=== PATIENT | female | born 1940 ===

== ENCOUNTER 2020-10-20 14:04 | Inpatient (IN) ==
[2020-10-20] MEDS ORDERED: Piperacillin/Tazobac ADVAN 3.375 GM in NS 0.9% 100 ml BAG 100 ML IV ONE (14:26)
[2020-10-20] MEDS ORDERED: NS 0.9% 1000 ml BAG 1,000 ML IV ONE ×2 (14:26→17:25)
[2020-10-20 15:07] LABS: ABS Lymphocytes 0.7 10^3/ul (1.0-4.8); ABS Monocytes 0.6 10^3/ul (0-0.8); Hematocrit 35 % (35-47); Hemoglobin 11.9 g/dL (12.0-16.0); Lymphocyte % 6.2 %; Mean Corpuscular HGB Conc 34 g/dL (31-36); Mean Corpuscular Hemoglobin 32 pg (27-31); Mean Corpuscular Volume 94 fL (80-97); Mean Platelet Volume 7.9 fL (7.4-10.4); Platelet Count 233 10^3/uL (150-450); Red Blood Count 3.77 10^6 /uL (3.70-4.87); Red Cell Distribution Width 14 % (10-15); White Blood Count 11.4 10^3/uL (3.5-10.8)
[2020-10-20 15:26] LABS: Activated Partial Thrombo Time 27.4 seconds (26.0-38.0); INR 1.23 (0.86-1.15)
[2020-10-20 15:41] LABS: ALT 28 U/L (7-52); AST 38 U/L (13-39); Albumin 4.1 g/dL (3.2-5.2); Albumin/Globulin Ratio 1.3 (1-3); Alkaline Phosphatase 60 U/L (35-149); Anion Gap 8 mmol/L (2-11); Blood Urea Nitrogen 28 mg/dL (6-24); C Reactive Protein 126.78 mg/L (<8.01); CO2 Carbon Dioxide 30 mmol/L (22-32); Calcium 9.4 mg/dL (8.6-10.3); Chloride 98 mmol/L (101-111); EGFR African American 29.1 (>60); EGFR Non-African American 24.1 (>60); Globulin 3.2 g/dL (2-4); Glucose 147 mg/dL (70-100); Lipase 43 U/L (11.0-82.0); Potassium 3.1 mmol/L (3.5-5.0); Sodium 136 mmol/L (135-145); Total Protein 7.3 g/dL (6.4-8.9)
[2020-10-20 15:47] LABS: Urine Appearance Turbid; Urine Bilirubin Negative (Negative); Urine Blood 3+ (Negative); Urine Color Amber; Urine Glucose Negative (Negative); Urine Ketones Negative (Negative); Urine Nitrite Positive (Negative); Urine Protein 3+(>=500 mg/dL) (Negative); Urine Specific Gravity 1.013 (1.002-1.030); Urine Urobilinogen Negative (Negative)
[2020-10-20 16:17] LABS: Urine Bacteria 1+ (Absent); Urine Red Blood Cell 3+(>10/hpf) (Absent); Urine White Blood Cell 3+(>20/hpf) (Absent)
[2020-10-20] MEDS ORDERED: NS 0.9% 1000 ml BAG 1,000 ML IV SCH (17:45)
[2020-10-20 17:47] LABS: Troponin I 0.04 ng/mL (<0.03)
[2020-10-20] MEDS ORDERED: cefTRIAXone 1 GM/50 ML PREMIX.BAG IV ONE (18:00)
[2020-10-20 22:50] LABS: Troponin I 0.04 ng/mL (<0.03)
[2020-10-21] MEDS: Heparin 5000 UNITS/ML 1 mL VIAL SUBCUT SCH ×2 (05:17→10:28)
[2020-10-21] MEDS: Potassium Chlor 20 meq TAB.ER PO SCH ×4 (05:48→13:04)
[2020-10-21 09:44] LABS: Hematocrit 30 % (35-47); Hemoglobin 10.2 g/dL (12.0-16.0); Mean Corpuscular HGB Conc 34 g/dL (31-36); Mean Corpuscular Hemoglobin 32 pg (27-31); Mean Corpuscular Volume 93 fL (80-97); Platelet Count 155 10^3/uL (150-450); Red Cell Distribution Width 14 % (10-15); White Blood Count 17.6 10^3/uL (3.5-10.8)
[2020-10-21 10:00] LABS: Calcium 7.9 mg/dL (8.6-10.3); EGFR African American 23.4 (>60); EGFR Non-African American 19.4 (>60); Magnesium 1.3 mg/dL (1.9-2.7); Potassium 3.2 mmol/L (3.5-5.0)
[2020-10-21] MEDS: Cholecalciferol (VIT D3) 1,000 unit TAB PO SCH (10:28)
[2020-10-21] MEDS: Aspirin EC 81 mg TAB.EC (enteric coated) PO SCH (10:28)
[2020-10-21 10:50] LABS: ABS Lymphocytes 0.7 10^3/ul (1.0-4.8); ABS Monocytes 1.1 10^3/ul (0-0.8); ABS Neutrophils 15.7 10^3/ul (1.5-7.7); Lymphocyte % 4.3 %
[2020-10-21] MEDS ORDERED: Magnesium Sulf 4 GM/100 ML IV 4,000 MG/100 ML BAG IVPB ONE (12:27)
[2020-10-21] MEDS ORDERED: NS 0.9% 1000 ml BAG 1,000 ML IV SCH (12:30)
[2020-10-21] MEDS: KCL 20 MEQ/100 ML IVPREMIX 20 MEQ/100 ML BAG IV SCH ×3 (13:02→17:59)
[2020-10-21] MEDS ORDERED: Albuterol/Ipratropium NEB.SOL (2.5/0.5 MG) 3 ML NEB.SOLN INH PRN (13:16)
[2020-10-21] MEDS: cefTRIAXone 1 gm/50 mL NS BAG 1 GM/50 ML BAG IVPB SCH (17:59)
[2020-10-21 21:29] LABS: Urine Creatinine Concentration 79.47 mg/dL
[2020-10-22] MEDS: Heparin 5000 UNITS/ML 1 mL VIAL SUBCUT SCH ×3 (00:54→20:37)
[2020-10-22] MEDS ORDERED: Ondansetron ODT 4 mg TAB 4 MG TAB SL PRN (06:20)
[2020-10-22] MEDS ORDERED: Al Hydrox/Mg Hydrox/Simet LIQ 30 ML UDC PO PRN (06:20)
[2020-10-22 06:31] LABS: Albumin 3.2 g/dL (3.2-5.2); Albumin/Globulin Ratio 1.2 (1-3); C Reactive Protein 197.86 mg/L (<8.01); Calcium 7.8 mg/dL (8.6-10.3); EGFR African American 20.8 (>60); EGFR Non-African American 17.2 (>60); Globulin 2.6 g/dL (2-4); Potassium 3.2 mmol/L (3.5-5.0); Total Bilirubin 1.2 mg/dL (0.2-1.0); Total Protein 5.8 g/dL (6.4-8.9)
[2020-10-22 06:50] LABS: ABS Lymphocytes 0.2 10^3/ul (1.0-4.8); ABS Neutrophils 0.7 10^3/ul (1.5-7.7); Eosinophil % 1.6 %; Hematocrit 31 % (35-47); Hemoglobin 10.5 g/dL (12.0-16.0); Mean Corpuscular HGB Conc 34 g/dL (31-36); Mean Corpuscular Hemoglobin 32 pg (27-31); Mean Corpuscular Volume 94 fL (80-97); Mean Platelet Volume 8.4 fL (7.4-10.4); Nucleated Red Blood Cells % 0.3; Platelet Count 107 10^3/uL (150-450); Red Blood Count 3.33 10^6 /uL (3.70-4.87); Red Cell Distribution Width 14 % (10-15)
[2020-10-22] MEDS ORDERED: Furosemide 40 mg/4 ml IV VIAL IV ONE (08:14)
[2020-10-22 08:36] LABS: Magnesium 2.5 mg/dL (1.9-2.7)
[2020-10-22] MEDS: Aspirin EC 81 mg TAB.EC (enteric coated) PO SCH (09:00)
[2020-10-22] MEDS: Cholecalciferol (VIT D3) 1,000 unit TAB PO SCH (09:01)
[2020-10-22] MEDS: KCL 20 MEQ/100 ML IVPREMIX 20 MEQ/100 ML BAG IV SCH ×3 (09:01→13:51)
[2020-10-22 11:31] LABS: Albumin 3.1 g/dL (3.2-5.2); Albumin/Globulin Ratio 1.2 (1-3); Calcium 7.9 mg/dL (8.6-10.3); EGFR African American 17.3 (>60); EGFR Non-African American 14.3 (>60); Globulin 2.5 g/dL (2-4); Potassium 3.5 mmol/L (3.5-5.0); Total Protein 5.6 g/dL (6.4-8.9)
[2020-10-22 11:43] LABS: ABS Lymphocytes 0.3 10^3/ul (1.0-4.8); ABS Monocytes 0.3 10^3/ul (0-0.8); ABS Neutrophils 13.7 10^3/ul (1.5-7.7); Hematocrit 29 % (35-47); Hemoglobin 10.2 g/dL (12.0-16.0); Lymphocyte % 2.2 %; Mean Corpuscular HGB Conc 35 g/dL (31-36); Mean Corpuscular Hemoglobin 32 pg (27-31); Mean Corpuscular Volume 92 fL (80-97); Mean Platelet Volume 9.4 fL (7.4-10.4); Platelet Count 116 10^3/uL (150-450); Red Blood Count 3.21 10^6 /uL (3.70-4.87); Red Cell Distribution Width 14 % (10-15); White Blood Count 14.3 10^3/uL (3.5-10.8)
[2020-10-22 12:11] LABS: RBC Parasite Smear No Parasites Seen (No Parasite)
[2020-10-22] MEDS: Azithromycin 500 mg/250 ml NS 500 MG/250 ML BAG IVPB SCH (13:51)
[2020-10-22] MEDS: cefTRIAXone 1 gm/50 mL NS BAG 1 GM/50 ML BAG IVPB SCH (18:30)
[2020-10-23 06:41] LABS: ABS Eosinophils 0.1 10^3/ul (0-0.6); ABS Lymphocytes 1.1 10^3/ul (1.0-4.8); ABS Monocytes 0.5 10^3/ul (0-0.8); ABS Neutrophils 13.9 10^3/ul (1.5-7.7); Eosinophil % 0.9 %; Hematocrit 27 % (35-47); Hemoglobin 9.3 g/dL (12.0-16.0); Lymphocyte % 6.8 %; Mean Corpuscular HGB Conc 34 g/dL (31-36); Mean Corpuscular Hemoglobin 32 pg (27-31); Mean Corpuscular Volume 94 fL (80-97); Mean Platelet Volume 9.4 fL (7.4-10.4); Platelet Count 95 10^3/uL (150-450); Red Cell Distribution Width 14 % (10-15); White Blood Count 15.7 10^3/uL (3.5-10.8)
[2020-10-23 06:56] LABS: Albumin/Globulin Ratio 1.2 (1-3); C Reactive Protein 205.23 mg/L (<8.01); Calcium 7.6 mg/dL (8.6-10.3); EGFR African American 12.5 (>60); EGFR Non-African American 10.3 (>60); Globulin 2.5 g/dL (2-4); Total Bilirubin 0.8 mg/dL (0.2-1.0); Total Protein 5.5 g/dL (6.4-8.9)
[2020-10-23] MEDS ORDERED: Zosyn per Pharmacy NOTE FOLLOW UP SCH (07:00)
[2020-10-23] MEDS: Cholecalciferol (VIT D3) 1,000 unit TAB PO SCH (07:13)
[2020-10-23] MEDS: Aspirin EC 81 mg TAB.EC (enteric coated) PO SCH (07:13)
[2020-10-23] MEDS: Heparin 5000 UNITS/ML 1 mL VIAL SUBCUT SCH (07:13)
[2020-10-23] MEDS ORDERED: Piperacillin/Tazobac ADVAN 3.375 GM in NS 0.9% 100 ml BAG 100 ML IV ONE (07:30)
[2020-10-23] MEDS ORDERED: NORMOSOL-R pH 7.4 1000 mL BAG 1,000 ML IV SCH (10:00)
[2020-10-23] MEDS ORDERED: NS 0.9% 1000 ml BAG 1,000 ML IV SCH ×2 (10:15→10:30)
[2020-10-23] MEDS ORDERED: Furosemide 100 mg/10 ml IV VIAL IV ONE (10:27)
[2020-10-23] MEDS: Azithromycin 500 mg/250 ml NS 500 MG/250 ML BAG IVPB SCH (12:03)
[2020-10-23 12:13] LABS: Calcium 7.9 mg/dL (8.6-10.3); EGFR African American 11.5 (>60); EGFR Non-African American 9.5 (>60); Potassium 3.8 mmol/L (3.5-5.0)
[2020-10-23] MEDS ORDERED: ZOSYN 3.375 GM Q12H per EXTENDED INFUSION IV SCH (12:30)
[2020-10-23 12:34] LABS: Urine Appearance Turbid; Urine Bilirubin Negative (Negative); Urine Blood 3+ (Negative); Urine Color Amber; Urine Glucose Negative (Negative); Urine Ketones Negative (Negative); Urine Nitrite Negative (Negative); Urine Protein 2+(100 mg/dL) (Negative); Urine Specific Gravity 1.011 (1.002-1.030); Urine Urobilinogen Negative (Negative)
[2020-10-23 12:39] LABS: Urine Amorphous Crystals Present (Absent); Urine Bacteria 1+ (Absent); Urine Red Blood Cell 3+(>10/hpf) (Absent); Urine White Blood Cell Trace(0-5/hpf) (Absent)
[2020-10-23 12:50] LABS: Urine Creatinine 97.96 mg/dL; Urine Creatinine Concentration 97.96 mg/dL
[2020-10-23 13:12] LABS: Hepatitis B Surface Antigen Nonreactive (Nonreactive)
[2020-10-23 13:23] LABS: UR Microalbumin (mg/L) 631.6 mg/L; Urine Microalbumin/Creatinine 644.7 (<31)
[2020-10-23 13:29] LABS: Hepatitis B Surface Ab Immune (Immune); Hepatitis C Antibody Negative (Negative)
[2020-10-23] MEDS: cefTRIAXone 2 GM ADDV.VIAL 2 GM in NS 0.9% 100 ml BAG 100 ML IV SCH (18:29)
[2020-10-24 06:05] LABS: Albumin 2.7 g/dL (3.2-5.2); Albumin/Globulin Ratio 1.2 (1-3); C Reactive Protein 146.19 mg/L (<8.01); Calcium 7.6 mg/dL (8.6-10.3); EGFR African American 9.3 (>60); EGFR Non-African American 7.7 (>60); Globulin 2.3 g/dL (2-4); Potassium 4.2 mmol/L (3.5-5.0); Total Bilirubin 0.6 mg/dL (0.2-1.0)
[2020-10-24 06:07] LABS: ABS Basophils 0.1 10^3/ul (0-0.2); ABS Eosinophils 0.2 10^3/ul (0-0.6); ABS Lymphocytes 1.5 10^3/ul (1.0-4.8); ABS Monocytes 0.9 10^3/ul (0-0.8); Eosinophil % 1.4 %; Hematocrit 29 % (35-47); Hemoglobin 9.7 g/dL (12.0-16.0); Lymphocyte % 9.7 %; Mean Corpuscular HGB Conc 34 g/dL (31-36); Mean Corpuscular Hemoglobin 31 pg (27-31); Mean Corpuscular Volume 93 fL (80-97); Mean Platelet Volume 9.9 fL (7.4-10.4); Platelet Count 111 10^3/uL (150-450); Red Blood Count 3.09 10^6 /uL (3.70-4.87); Red Cell Distribution Width 14 % (10-15); White Blood Count 15.6 10^3/uL (3.5-10.8)
[2020-10-24] MEDS ORDERED: fentaNYL 100 mcg/2 ml 50 MCG/ML VIAL ONE ×2 (07:58→11:12)
[2020-10-24 08:05] LABS: Magnesium 2.5 mg/dL (1.9-2.7); Phosphorus 2.2 mg/dL (2.5-5.0)
[2020-10-24] MEDS: Cholecalciferol (VIT D3) 1,000 unit TAB PO SCH (10:21)
[2020-10-24] MEDS: Azithromycin 500 mg/250 ml NS 500 MG/250 ML BAG IVPB SCH (10:22)
[2020-10-24] MEDS ORDERED: Clindamycin 600 MG/D5W BAG 600 MG/50 ML BAG IV ONE (10:45)
[2020-10-24 10:46] LABS: Anion Gap 10 mmol/L (2-11); Blood Urea Nitrogen 72 mg/dL (6-24); CO2 Carbon Dioxide 21 mmol/L (22-32); Calcium 8.1 mg/dL (8.6-10.3); Chloride 104 mmol/L (101-111); EGFR African American 9.1 (>60); EGFR Non-African American 7.5 (>60); Glucose 93 mg/dL (70-100); Potassium 4.2 mmol/L (3.5-5.0); Sodium 135 mmol/L (135-145)
[2020-10-24] MEDS ORDERED: Heparin 5000 UNITS/ML 1 mL VIAL ONE (11:10)
[2020-10-24] MEDS ORDERED: Midazolam 5 mg/5 ml VIAL 1 mg/ml 5 ml VIAL (5 mg) ONE (11:12)
[2020-10-24] MEDS ORDERED: Lidocaine 1% VIAL 10 MG/ML VIAL ONE (11:15)
[2020-10-24] MEDS ORDERED: Heparin 2 UNITS/ML IVPREMIX 1,000 UNIT/500 ML BAG IV ONE (11:15)
[2020-10-24] MEDS ORDERED: Heparin 1,000 UNIT/ML 10 ml (10,000 UNITS) CATHLAB/DIALYSIS DIALYSIS ONE (12:00)
[2020-10-24 16:29] LABS: Complement C3 96 mg/dL (75 - 175)
[2020-10-24 16:47] LABS: Kappa Free Light Chain 5.36 mg/dL; Lambda Free Light Chain, S 4.84 mg/dL
[2020-10-24] MEDS: cefTRIAXone 2 GM ADDV.VIAL 2 GM in NS 0.9% 100 ml BAG 100 ML IV SCH (18:00)
[2020-10-24 18:16] LABS: Procalcitonin, S 254 ng/mL (<=0.15)
[2020-10-25 06:25] LABS: Hematocrit 26 % (35-47); Hemoglobin 8.5 g/dL (12.0-16.0); Mean Corpuscular HGB Conc 33 g/dL (31-36); Mean Corpuscular Hemoglobin 31 pg (27-31); Mean Corpuscular Volume 93 fL (80-97); Mean Platelet Volume 9.6 fL (7.4-10.4); Platelet Count 146 10^3/uL (150-450); Red Blood Count 2.77 10^6 /uL (3.70-4.87); Red Cell Distribution Width 14 % (10-15); White Blood Count 13.3 10^3/uL (3.5-10.8)
[2020-10-25 06:43] LABS: Albumin 2.9 g/dL (3.2-5.2); Albumin/Globulin Ratio 1.1 (1-3); C Reactive Protein 102.45 mg/L (<8.01); Calcium 7.9 mg/dL (8.6-10.3); EGFR African American 10.9 (>60); Globulin 2.7 g/dL (2-4); Magnesium 2.1 mg/dL (1.9-2.7); Phosphorus 2.7 mg/dL (2.5-5.0); Potassium 3.8 mmol/L (3.5-5.0); Total Bilirubin 0.5 mg/dL (0.2-1.0); Total Protein 5.6 g/dL (6.4-8.9)
[2020-10-25 07:44] LABS: Anaplasma phagocytophilum Negative (Negative); B. miyamotoi PCR, B Negative (Negative); Babesia divergens/MO-1 Negative (Negative); Babesia ducani Negative (Negative); Ehrlichia chaffeensis Negative (Negative); Ehrlichia ewingii/canis Negative (Negative); Ehrlichia muris eauclairensis Negative (Negative)
[2020-10-25 07:52] LABS: ABS Basophils 0.1 10^3/ul (0-0.2); ABS Eosinophils 0.3 10^3/ul (0-0.6); ABS Lymphocytes 1.1 10^3/ul (1.0-4.8); ABS Monocytes 0.9 10^3/ul (0-0.8); ABS Neutrophils 10.9 10^3/ul (1.5-7.7); Lymphocyte % 8.6 %
[2020-10-25 10:33] LABS: Myeloperoxidase Antibody <0.2 U
[2020-10-25] MEDS: Cholecalciferol (VIT D3) 1,000 unit TAB PO SCH (11:42)
[2020-10-25] MEDS: cefTRIAXone 2 GM ADDV.VIAL 2 GM in NS 0.9% 100 ml BAG 100 ML IV SCH (15:56)
[2020-10-25 17:59] LABS: Phospholipase A2 Receptor IFA Negative (Negative); Phospholipase A2 ReceptorELISA <2 RU/mL
[2020-10-25 20:59] LABS: Albumin 2.3 g/dL (3.4-4.7); Albumin/Globulin Ratio 0.86; Gamma Globulin 0.8 g/dL (0.6-1.6)
[2020-10-26 05:50] LABS: Hematocrit 26 % (35-47); Hemoglobin 8.6 g/dL (12.0-16.0); Mean Corpuscular HGB Conc 34 g/dL (31-36); Mean Corpuscular Hemoglobin 31 pg (27-31); Mean Corpuscular Volume 93 fL (80-97); Mean Platelet Volume 8.8 fL (7.4-10.4); Platelet Count 194 10^3/uL (150-450); Red Blood Count 2.76 10^6 /uL (3.70-4.87); Red Cell Distribution Width 14 % (10-15); White Blood Count 12.4 10^3/uL (3.5-10.8)
[2020-10-26 05:57] LABS: INR 1.09 (0.86-1.15)
[2020-10-26 06:16] LABS: Albumin/Globulin Ratio 1.1 (1-3); C Reactive Protein 86.09 mg/L (<8.01); Calcium 7.9 mg/dL (8.6-10.3); Direct Bilirubin 0.2 mg/dL (0.03-0.18); EGFR African American 12.2 (>60); EGFR Non-African American 10.1 (>60); Globulin 2.8 g/dL (2-4); Indirect Bilirubin 0.2 mg/dL (0.3-1.0); Potassium 3.7 mmol/L (3.5-5.0); Total Bilirubin 0.4 mg/dL (0.2-1.0); Total Protein 5.8 g/dL (6.4-8.9)
[2020-10-26 06:57] LABS: HIV 4th Generation Nonreactive (Nonreactive)
[2020-10-26 07:01] LABS: ABS Basophils 0.1 10^3/ul (0-0.2); ABS Eosinophils 0.4 10^3/ul (0-0.6); ABS Lymphocytes 1.2 10^3/ul (1.0-4.8); ABS Monocytes 0.9 10^3/ul (0-0.8); ABS Neutrophils 9.9 10^3/ul (1.5-7.7); Eosinophil % 2.8 %; Lymphocyte % 9.4 %
[2020-10-26] MEDS: Cholecalciferol (VIT D3) 1,000 unit TAB PO SCH (10:03)
[2020-10-26 12:22] LABS: C-ANCA Negative (Negative); P-ANCA Negative (Negative)
[2020-10-26] MEDS: cefTRIAXone 2 GM ADDV.VIAL 2 GM in NS 0.9% 100 ml BAG 100 ML IV SCH (16:26)
[2020-10-27 06:37] LABS: Hematocrit 26 % (35-47); Hemoglobin 8.6 g/dL (12.0-16.0); Mean Corpuscular HGB Conc 33 g/dL (31-36); Mean Corpuscular Hemoglobin 31 pg (27-31); Mean Corpuscular Volume 93 fL (80-97); Mean Platelet Volume 8.1 fL (7.4-10.4); Platelet Count 279 10^3/uL (150-450); Red Cell Distribution Width 14 % (10-15); White Blood Count 14.3 10^3/uL (3.5-10.8)
[2020-10-27 06:58] LABS: C Reactive Protein 66.08 mg/L (<8.01); Calcium 7.9 mg/dL (8.6-10.3); EGFR African American 8.5 (>60); Phosphorus 4.4 mg/dL (2.5-5.0); Potassium 3.9 mmol/L (3.5-5.0); Total Bilirubin 0.4 mg/dL (0.2-1.0)
[2020-10-27] MEDS ORDERED: Heparin 1,000 UNIT/ML 10 ml (10,000 UNITS) CATHLAB/DIALYSIS DIALYSIS SCH (08:00)
[2020-10-27 12:39] LABS: Flag, M-protein Isotype Negative (Negative)
[2020-10-27] MEDS: Cholecalciferol (VIT D3) 1,000 unit TAB PO SCH (14:14)
[2020-10-27] MEDS: cefTRIAXone 2 GM ADDV.VIAL 2 GM in NS 0.9% 100 ml BAG 100 ML IV SCH (17:02)
[2020-10-28 05:28] LABS: Hematocrit 28 % (35-47); Hemoglobin 9.3 g/dL (12.0-16.0); Mean Corpuscular HGB Conc 34 g/dL (31-36); Mean Corpuscular Hemoglobin 31 pg (27-31); Mean Corpuscular Volume 93 fL (80-97); Mean Platelet Volume 8.3 fL (7.4-10.4); Platelet Count 372 10^3/uL (150-450); Red Blood Count 2.97 10^6 /uL (3.70-4.87); Red Cell Distribution Width 14 % (10-15); White Blood Count 15.6 10^3/uL (3.5-10.8)
[2020-10-28 05:46] LABS: Calcium 8.2 mg/dL (8.6-10.3); EGFR African American 12.4 (>60); EGFR Non-African American 10.2 (>60); Phosphorus 4.5 mg/dL (2.5-5.0); Potassium 3.7 mmol/L (3.5-5.0)
[2020-10-28 09:38] LABS: ABS Basophils 0.1 10^3/ul (0-0.2); ABS Eosinophils 0.5 10^3/ul (0-0.6); ABS Lymphocytes 1.4 10^3/ul (1.0-4.8); ABS Neutrophils 12.6 10^3/ul (1.5-7.7); Eosinophil % 2.9 %
[2020-10-28] MEDS: Cholecalciferol (VIT D3) 1,000 unit TAB PO SCH (10:30)
[2020-10-28] MEDS: cefTRIAXone 2 GM ADDV.VIAL 2 GM in NS 0.9% 100 ml BAG 100 ML IV SCH (17:22)
[2020-10-29 09:13] LABS: Hematocrit 28 % (35-47); Hemoglobin 9.7 g/dL (12.0-16.0); Mean Corpuscular HGB Conc 34 g/dL (31-36); Mean Corpuscular Hemoglobin 32 pg (27-31); Mean Corpuscular Volume 93 fL (80-97); Mean Platelet Volume 7.8 fL (7.4-10.4); Platelet Count 489 10^3/uL (150-450); Red Blood Count 3.05 10^6 /uL (3.70-4.87); Red Cell Distribution Width 14 % (10-15); White Blood Count 14.5 10^3/uL (3.5-10.8)
[2020-10-29 09:30] LABS: Calcium 8.3 mg/dL (8.6-10.3); EGFR African American 8.3 (>60); EGFR Non-African American 6.8 (>60); Potassium 3.8 mmol/L (3.5-5.0)
[2020-10-29 09:57] LABS: ABS Eosinophils 0.4 10^3/ul (0-0.6); ABS Lymphocytes 1.2 10^3/ul (1.0-4.8); ABS Monocytes 0.7 10^3/ul (0-0.8); Eosinophil % 2.8 %; Lymphocyte % 8.6 %
[2020-10-29] MEDS: Cholecalciferol (VIT D3) 1,000 unit TAB PO SCH (10:13)
[2020-10-29] MEDS: cefTRIAXone 2 GM ADDV.VIAL 2 GM in NS 0.9% 100 ml BAG 100 ML IV SCH (15:50)
[2020-10-30 06:54] LABS: Hematocrit 25 % (35-47); Hemoglobin 8.5 g/dL (12.0-16.0); Mean Corpuscular HGB Conc 34 g/dL (31-36); Mean Corpuscular Hemoglobin 32 pg (27-31); Mean Corpuscular Volume 93 fL (80-97); Mean Platelet Volume 7.4 fL (7.4-10.4); Platelet Count 439 10^3/uL (150-450); Red Blood Count 2.67 10^6 /uL (3.70-4.87); Red Cell Distribution Width 14 % (10-15); White Blood Count 11.4 10^3/uL (3.5-10.8)
[2020-10-30 07:08] LABS: Albumin 3.3 g/dL (3.2-5.2); Albumin/Globulin Ratio 1.1 (1-3); Calcium 7.7 mg/dL (8.6-10.3); EGFR Non-African American 5.8 (>60); Phosphorus 6.3 mg/dL (2.5-5.0); Total Bilirubin 0.4 mg/dL (0.2-1.0); Total Protein 6.3 g/dL (6.4-8.9)
[2020-10-30] MEDS: Heparin 1,000 UNIT/ML 10 ml (10,000 UNITS) CATHLAB/DIALYSIS DIALYSIS ONE ×4 (08:34→12:14)
[2020-10-30] MEDS: Cholecalciferol (VIT D3) 1,000 unit TAB PO SCH (12:39)
[2020-10-30] MEDS: cefTRIAXone 2 GM ADDV.VIAL 2 GM in NS 0.9% 100 ml BAG 100 ML IV SCH (15:40)
[2020-10-31 07:11] LABS: Hematocrit 27 % (35-47); Hemoglobin 9.3 g/dL (12.0-16.0); Mean Corpuscular HGB Conc 34 g/dL (31-36); Mean Corpuscular Hemoglobin 32 pg (27-31); Mean Corpuscular Volume 94 fL (80-97); Mean Platelet Volume 7.4 fL (7.4-10.4); Platelet Count 496 10^3/uL (150-450); Red Cell Distribution Width 14 % (10-15); White Blood Count 11.5 10^3/uL (3.5-10.8)
[2020-10-31 07:12] LABS: INR 1.12 (0.86-1.15)
[2020-10-31 07:22] LABS: Calcium 8.4 mg/dL (8.6-10.3); EGFR African American 10.2 (>60); EGFR Non-African American 8.4 (>60); Phosphorus 5.2 mg/dL (2.5-5.0); Potassium 3.9 mmol/L (3.5-5.0)
[2020-10-31] MEDS: Albuterol HFA INHALER 8 gm MDI INH PRN (08:01)
[2020-10-31] MEDS: Cholecalciferol (VIT D3) 1,000 unit TAB PO SCH (11:11)
[2020-10-31] MEDS ORDERED: fentaNYL 100 mcg/2 ml 50 MCG/ML VIAL ONE (14:10)
[2020-10-31] MEDS ORDERED: Morphine 2 MG/ML SYRINGE IV PRN (16:34)
[2020-10-31] MEDS: cefTRIAXone 2 GM ADDV.VIAL 2 GM in NS 0.9% 100 ml BAG 100 ML IV SCH (17:08)
[2020-10-31] MEDS ORDERED: fentaNYL 100 mcg/2 ml 50 MCG/ML VIAL IV SLOW PU ONE (17:11)
[2020-10-31] MEDS ORDERED: Morphine 2 MG/ML SYRINGE IV ONE (17:45)
[2020-11-01] MEDS ORDERED: Morphine 2 MG/ML SYRINGE IV ONE (01:51)
[2020-11-01 06:35] LABS: Hematocrit 27 % (35-47); Hemoglobin 9.2 g/dL (12.0-16.0); Mean Corpuscular HGB Conc 35 g/dL (31-36); Mean Corpuscular Hemoglobin 32 pg (27-31); Mean Corpuscular Volume 94 fL (80-97); Mean Platelet Volume 7.4 fL (7.4-10.4); Platelet Count 544 10^3/uL (150-450); Red Blood Count 2.83 10^6 /uL (3.70-4.87); Red Cell Distribution Width 14 % (10-15); White Blood Count 14.6 10^3/uL (3.5-10.8)
[2020-11-01 07:17] LABS: Calcium 8.2 mg/dL (8.6-10.3); EGFR African American 7.6 (>60); EGFR Non-African American 6.3 (>60); Magnesium 2.1 mg/dL (1.9-2.7); Phosphorus 6.8 mg/dL (2.5-5.0); Potassium 4.2 mmol/L (3.5-5.0)
[2020-11-01] MEDS ORDERED: Buffered Lidocaine 1% SYRIN 1 ml INTRADERM ONE (09:39)
[2020-11-01] MEDS ORDERED: Heparin 1,000 UNIT/ML 10 ml (10,000 UNITS) CATHLAB/DIALYSIS DIALYSIS ONE (11:00)
[2020-11-01] MEDS: Cholecalciferol (VIT D3) 1,000 unit TAB PO SCH (11:41)
[2020-11-01] MEDS: Albuterol HFA INHALER 8 gm MDI INH PRN (11:58)
[2020-11-01 14:50] LABS: EGFR African American 15.2 (>60); EGFR Non-African American 12.6 (>60); Potassium 4.4 mmol/L (3.5-5.0)
[2020-11-01 16:08] VITALS: BP 118/58
== END 2020-11-01 17:00 | disposition home health service (06) | DRG 871 ==
LOC: ED 14:04 → MEDTELE 22:26 → ICU 10-23 17:09 → MED 10-25 18:03
PROVIDERS: ADMIT Student in an Organized Health Care Education/Training Program; ATTEND Student in an Organized Health Care Education/Training Program